=== PATIENT | female | born 2000 | race Two or more races ===

== ENCOUNTER 2022-12-12 04:09 | Emergency (ER) | payer MEDICAID, OTHER ==
[~2022-12-12] VITALS: Ht 167.6 cm; Wt 59.0 kg
--- NOTE | 2022-12-12 04:24 | NUR ---
BIBSELF FROM HOME C/O LEFT BUTTCHEEK REDNESS, SWELLING, PAINX FEW DAYS. SKIN INTACT. PT A/OX4. TOELRATING R/A WELL WITH NO RESP DISTRESS. PT CHANGED IN GOWN. SAFETY MEASURES IN PLACE.
--- NOTE | 2022-12-12 04:30 | NUR ---
SEEN BY DR HOFFMAN AT BEDSIDE
--- NOTE | 2022-12-12 04:44 | NUR ---
IV CANNULA G18 INSERTED ON RIGHT AC. BLOOD DRAWN AND SENT TO LAB
[2022-12-12 05:04] LABS: BASOPHILS % (AUTO) 0.4 % (0.0-2.0); HEMATOCRIT 31 % (33-45); HEMOGLOBIN 10.5 g/dL (11.5-14.8); LYMPHOCYTES # (AUTO) 2.1 K/uL (0.8-4.8); LYMPHOCYTES % (AUTO) 26.5 % (20.0-44.0); MEAN CORPUSCULAR HGB CONC 34 g/dl (31.0-36.0); MEAN CORPUSCULAR VOLUME 87 fL (82-100); MONOCYTES # (AUTO) 0.9 K/uL (0.1-1.30); MONOCYTES % (AUTO) 11.3 % (2.0-12.0); NEUTROPHILS # (AUTO) 4.8 K/uL (1.8-8.9); NEUTROPHILS % (AUTO) 59.8 % (43.0-81.0); PLATELET COUNT (AUTO) 162 K/uL (150-450); RED BLOOD CELL COUNT(AUTO) 3.52 MIL/uL (4.0-5.2)
[2022-12-12 05:09] LABS: CALCIUM, SERUM 8.4 mg/dL (8.5-10.1); CREATININE 0.6 mg/dL (0.6-1.3)
[2022-12-12] MEDS ORDERED: IOHEXOL-300 100 ML VIAL IV ONE (05:13)
[2022-12-12 05:15] LABS: BILIRUBIN,DIRECT 0.1 mg/dL (0.0-0.2); BILIRUBIN,TOTAL 0.5 mg/dL (0.2-1.0); TOTAL PROTEIN, SERUM 5.7 g/dL (6.4-8.2)
--- NOTE | 2022-12-12 05:20 | NUR ---
PT SIGNED WAIVER THAT SHE IS NOT
--- NOTE | 2022-12-12 05:22 | NUR ---
FF UP RAD DEPT FOR CT SCAN
[2022-12-12] MEDS ORDERED: POTASSIUM CHLORIDE 20 MEQ TAB.PRT.SR PO ONE ×2 (05:30→05:58)
--- NOTE | 2022-12-12 05:33 | NUR ---
PT TAKEN TO CT VIA SCOOBY
--- NOTE | 2022-12-12 05:54 | NUR ---
PT RETURNED TO ER BED [address]
--- NOTE | 2022-12-12 07:15 | NUR ---
RECEIVED PT FROM KINDRA ASHTON PT ASLEPY RESPIRATION SPONT AND EASY WATING FOR CT RESULT
[2022-12-12] MEDS ORDERED: AMOX/CLAVULANATE 875 MG TABLET PO ONE (08:00)
[2022-12-12] MEDS ORDERED: AMOX-430 PO (08:03)
[2022-12-12] MEDS ORDERED: AMOX/CLAVULANATE 875 MG TABLET ONE (08:10)
--- NOTE | 2022-12-12 08:10 | NUR ---
Patient discharged to home in stable condition. Written and verbal after care instructions given. Patient verbalizes understanding of instruction.
--- NOTE | 2022-12-12 08:13 | NUR ---
augmentin po given as indicated, malachi well.
--- NOTE | 2022-12-12 08:17 | NUR ---
IV removed. Catheter intact and site benign. Pressure and 4x4 applied to site. No bleeding noted.
[2022-12-12 08:23] VITALS: BP 96/56
== END 2022-12-12 08:23 | disposition home or self-care (01) ==
LOC: ER 04:25
DX: K61.1 Rectal abscess (principal); E87.6 Hypokalemia; Z88.8 Allergy status to other drugs, medicaments and biological substances; Z60.2 Problems related to living alone
CPT/HCPCS: 99285; 72193; 85025; 80048; 87040 ×2; 83605; 80076; 36415; 85730; Q9967